=== PATIENT | male | born 1955 | race Caucasian/White ===

== ENCOUNTER 2019-04-18 07:01 | Emergency (ER) | payer MEDICARE ==
[2019-04-18] MEDS ORDERED: Tamsulosin 0.4 MG Cap.ER ONE (07:19)
[2019-04-18] MEDS ORDERED: Ketorolac 60 MG/2 ML SDV ONE (07:21)
[2019-04-18] MEDS ORDERED: Tamsulosin 0.4 MG Cap.ER PO ONE (07:30)
[2019-04-18] MEDS ORDERED: Ketorolac 60 MG/2 ML SDV IM ONE (07:30)
--- NOTE | 2019-04-18 07:37 | EDM.PDOC ---
ED HPI GENERAL MEDICAL PROBLEM - General Chief Complaint: Genitourinary Problem Stated Complaint: KIDNEY STONE Time Seen by Provider: 04/18/19 07:31 Source of Information: Reports: Patient, RN History Limitations: Reports: No Limitations - History of Present Illness INITIAL COMMENTS - FREE TEXT/NARRATIVE: 64 yr male presents with pain and states hx of kidney stones and several bouts this season. States this pain started around 430 am and he did go swimming to try and improve the urination. Last bout was about December of this year. kidney stone Pain Score (Numeric/FACES): 8 - Related Data Allergies Allergy/AdvReac Type Severity Reaction Status Date / Time Penicillins Allergy Cannot Verified 04/18/19 07:20 Remember ED ROS GENERAL - Review of Systems Review Of Systems: See Below Constitutional: Reports: No Symptoms HEENT: Reports: No Symptoms Respiratory: Reports: No Symptoms, Other (hx of seasonal allergies.) Cardiovascular: Reports: No Symptoms, Other (family hx of heart disease, no sudden NV or early .) Endocrine: Reports: No Symptoms GI/Abdominal: Reports: No Symptoms : Reports: Flank Pain (right flank pain), Urinary Retention Musculoskeletal: Reports: Back Pain (Naproxen, Tylenol, ice to back. L4,L5 and radiculopathy started to flair up several weeks ago [place] Skin: Reports: No Symptoms Neurological: Reports: No Symptoms Psychiatric: Reports: No Symptoms Hematologic/Lymphatic: Reports: No Symptoms Immunologic: Reports: No Symptoms ED EXAM, RENAL/ - Physical Exam Exam: See Below Exam Limited By: No Limitations General Appearance: Alert, No Apparent Distress Ears: Hearing Grossly Normal Nose: Normal Inspection Throat/Mouth: Normal Inspection, Normal Lips, Normal Oropharynx, Normal Voice, No Airway Compromise Head: Atraumatic, Normocephalic Neck: Normal Inspection, Supple Respiratory/Chest: No Respiratory Distress, Lungs Clear, Normal Breath Sounds Cardiovascular: Normal Peripheral Pulses, Regular Rate, Rhythm, No Edema GI/Abdominal: Normal Bowel Sounds, Soft, Non-Tender (Male) Exam: Deferred Rectal (Males) Exam: Deferred Back Exam: Vertebral Tenderness Extremities: Normal Range of Motion, Non-Tender, No Pedal Edema Neurological: Alert, Oriented, Normal Cognition Psychiatric: Normal Affect, Normal Mood Skin Exam: Warm, Dry, Normal Color Course - Vital Signs Last Recorded V/S: Last Vital Signs Temp 96.7 F 04/18/19 07:06 Pulse 84 04/18/19 07:06 Resp 16 04/18/19 07:06 BP 151/78 H 04/18/19 07:06 Pulse Ox 100 04/18/19 07:06 - Orders/Labs/Meds Labs: Laboratory Tests 04/18/19 04/18/19 04/18/19 Range/Units 07:30 07:30 07:33 WBC 6.1 (4.0-11.0) K/uL RBC 5.31 (4.50-6.50) M/uL Hgb 16.5 (13.0-18.0) g/dL Hct 48.1 (40.0-54.0) % MCV 91 (76-96) fL MCH 31.1 (27.0-32.0) pg MCHC 34.3 (31.0-35.0) g/dL RDW 12.8 (11.0-16.0) % Plt Count 205 (150-400) K/uL MPV 11.4 H (6.0-10.0) fL Neut % (Auto) 59.5 (45.0-70.0) % Lymph % (Auto) 22.6 (20.0-40.0) % Island % (Auto) 13.1 H (3.0-10.0) % Eos % (Auto) 4.3 (1.0-5.0) % Baso % (Auto) 0.5 (0.0-0.5) % Neut # (Auto) 3.63 (2.00-7.50) K/uL Lymph # (Auto) 1.38 L (1.50-4.00) K/uL Island # (Auto) 0.80 (0.20-0.80) K/uL Eos # (Auto) 0.26 (0.04-0.40) K/uL Baso # (Auto) 0.03 (0.02-0.10) K/uL Sodium 136 (136-145) mmol/L Potassium 4.0 (3.5-5.1) mmol/L Chloride 95 L (98-107) mmol/L Carbon Dioxide 29.5 (21.0-32.0) mmol/L Anion Gap 15.5 H (5.0-15.0) mmol/L BUN 19 (8-26) mg/dL Creatinine 1.08 (0.70-1.30) mg/dL Est Cr Clr Drug Dosing 73.85 mL/min Estimated GFR (MDRD) > 60 (>60) MLS/MIN BUN/Creatinine Ratio 17.6 (6-25) Glucose 94 (74-100) mg/dL Calcium 9.4 (8.5-10.1) mg/dL Total Bilirubin 0.9 (0.0-1.0) mg/dL AST 105 H (15-37) U/L ALT 60 (12-78) U/L Alkaline Phosphatase 65 (46-116) U/L Total Protein 8.1 (6.4-8.2) g/dL Albumin 4.6 (3.4-5.0) g/dL Globulin 3.5 (2.2-4.2) g/dL Albumin/Globulin Ratio 1.3 (0.8-2.0) Urine Color Yellow Urine Appearance Clear (CLEAR) Urine pH 5.5 (5.0-8.0) Ur Specific [place] >= 1.030 (1.003-1.030) Urine Protein 30 H (NEGATIVE) mg/dL Urine Glucose (UA) Negative (NEGATIVE) mg/dL Urine Ketones 80 H (NEGATIVE) mg/dL Urine Occult Blood Trace-intact H (NEGATIVE) Urine Nitrite Negative (NEGATIVE) Urine Bilirubin Moderate H (NEGATIVE) Urine Urobilinogen 0.2 (0.2-1.0) E.U./dL Ur Leukocyte Esterase Negative (NEGATIVE) Urine RBC 0-5 H /HPF Urine WBC 0-5 H /HPF Ur Squamous Epith Cells Few /HPF Urine Mucus Moderate /HPF Meds: Medications Discontinued Medications Generic Name Dose Route Start Last Admin Trade Name Freq PRN Reason Stop Dose Admin Ketorolac Tromethamine Confirm 04/18/19 07:21 04/18/19 07:30 Toradol Administered 04/18/19 07:22 Not Given Dose 60 mg .ROUTE .STK-MED ONE Ketorolac Tromethamine 60 mg 04/18/19 07:30 04/18/19 07:36 Toradol IM 04/18/19 07:31 60 mg ONETIME ONE Administration Tamsulosin HCl Confirm 04/18/19 07:19 04/18/19 07:29 Flomax Administered 04/18/19 07:20 Not Given Dose 0.4 mg .ROUTE .STK-MED ONE Tamsulosin HCl 0.4 mg 04/18/19 07:30 04/18/19 07:36 Flomax PO 04/18/19 07:31 0.4 mg ONETIME ONE Administration - Re-Assessments/Exams Free Text/Narrative Re-Assessment/Exam: 04/18/19 07:48 Strong history of back pain and kidney stones. Right flank pain , no history of heart disease, aneurysm, diabetes, Thyroid disease. He does see the urologist regularly and will follow-up, he does live in [place]. He is staying with his brother, Ramesh Jung in town, he rides his bike in town and is feeling better after the Toradol and Flomax. 04/18/19 08:06 CT completed and several stones noted to right ureters and bladder. Pain has improved to about half of what it was. CT read of radiologist is pending. Will discharge if Stones less than 6mm. Will give Rx of Hydrocodone/APAP 5/325 , one tablet every 4-6 hour prn, no driving while taking this medication. 04/18/19 08:11 Last Rx of Vicoden was in December for this kidney stone. He does have Flomax at home and is planning to take it tomorrow. Discussed CT results with 7 mm stone at juncture to bladder. Discussed pyelonephritis. Will start Cipro bid X 7 days. Pt states understanding and will follow-up with urology at home or RTC or ER if pain increases. Departure - Departure Time of Disposition: 08:32 Disposition: Home, Self-Care 01 Condition: Good Clinical Impression: Kidney stone - Discharge Information *PRESCRIPTION DRUG MONITORING PROGRAM REVIEWED*: No *COPY OF PRESCRIPTION DRUG MONITORING REPORT IN PATIENT MARIA ESTHER: No Instructions: Acetaminophen; Hydrocodone tablets or capsules, Low-Purine Eating Plan, Kidney Stones, [id number], Tamsulosin capsules, Ciprofloxacin tablets Referrals: PCP,Unknown [Primary Care Provider] - Forms: ED Department Discharge Additional Instructions: Follow up with your urologist in the next week. Take the pain medication ([place], hydrocodone) as needed for the discomfort. Take with food as well and DO NOT CONSUME ALCOHOL OR DRIVE while on the medication. You can also take ibuprofen or naproxen throughout the day until you have passed the stone, BUT DO NOT TAKE ANY UNTIL AFTER 2PM. ibuprofen- 3 tablets every 6-8 hours with food naproxen-2 tablets every 12 hours with food Make sure you are still having regular bowel movements. Drink plenty of fluids water and gatorade. Return to the ER or feel free to call if you have any further symptoms that concern you. - Assessment/Plan Plan: Last Rx of Vicoden was in December for this kidney stone. He does have Flomax at home and is planning to take it tomorrow. Discussed CT results with 7 mm stone at juncture to bladder. Discussed pyelonephritis. Will start Cipro bid X 7 days. Pt states understanding and will follow-up with urology at home or RTC or ER if pain increases.
[2019-04-18] MEDS ORDERED: Ciprofloxacin 500 MG Tab ONE (08:00)
[2019-04-18] MEDS ORDERED: Acetaminophen/HYDROcodone 325-5 MG Tab ONE (08:00)
--- NOTE | 2019-04-18 08:29 | CT ---
DATE OF SERVICE: 04/18/19 CLINICAL DATA: kidney stone history with flank pain Unenhanced abdomen and pelvic CT: Multislice acquisition through the abdomen and pelvis without IV or oral contrast was performed. No priors. The lung bases are clear. The liver is normal size. There is focal decreased attenuation of the left lobe of the liver, medial segment, adjacent to the falciform ligament most likely representing focal fatty infiltration. No other focal hepatic lesions. The gallbladder appears normal. The spleen appears normal. Pancreas appears normal. The right and left adrenals appear normal. No nephrocalcinosis or nephrolithiasis. There is a 7 mm distal ureteral calculi on the right located in the distal right ureter just proximal to the ureterovesical junction. There is hydronephrosis and hydroureter proximal to it consistent with obstruction. There is also perinephric fat stranding and perinephric fluid on the right consistent with obstruction and pyelosinus extravasation. There is also fat stranding adjacent to the right ureter most likely related to obstruction. Pyelonephritis should be considered. The kidneys and collecting systems otherwise appear unremarkable. The appendix is not dilated. No evidence of appendicitis. There is mild diverticulosis of the sigmoid colon. No evidence of diverticulitis. There is a small amount of fluid within the bladder. Progression normal. The prostate is enlarged. No free air. No free fluid. No dilated loops of bowel. No adenopathy. No aortic aneurysm. There is a small bowel hernia containing fat. Impression: 7mm distal ureteral calculi on the right as discussed above. Other findings as discussed above. MTDD
== END 2019-04-18 08:34 | disposition home or self-care (01) ==
LOC: LB.ED 07:01
DX: N13.2 Hydronephrosis with renal and ureteral calculous obstruction (principal); Z88.0 Allergy status to penicillin
CPT/HCPCS: 36415; 74176; 80053; 81001; 85025; 96372; 99284; A9270; J1885

== ENCOUNTER 2022-03-25 11:15 | Emergency (ER) | payer MEDICARE ==
[2022-03-25] MEDS ORDERED: Cephalexin 500 MG Cap ONE (11:25)
== END 2022-03-25 11:28 | disposition home or self-care (01) ==
LOC: LB.ED 11:15
DX: L03.032 Cellulitis of left toe (principal); Z88.0 Allergy status to penicillin
CPT/HCPCS: 99281; 99283; A9270-GY